=== PATIENT | female | born 1975 | race African-American/Black ===

== ENCOUNTER → 2016-07-23 | Outpatient (CLI) | payer OTHER ==
[~2016-07-23] MED LIST: IRON325 PO; PREDNISONE 20 M20 M1 PO; PRENATAL
== END ==
LOC: CAT 08:12
DX: Z13.6 Encounter for screening for cardiovascular disorders (principal)

== ENCOUNTER → 2017-07-15 | Outpatient (CLI) | payer BC | LOC: RAD 01:57 | DX: Z12.31 Encounter for screening mammogram for malignant neoplasm of breast (principal) ==